=== PATIENT | female | born 1940 | race Caucasian/White ===

== ENCOUNTER → 2017-08-31 | Outpatient (CLI) | payer OTHER ==
[~2017-08-31] MED LIST: ACTONEL 5 MG5 M1 PO; ACTONEL PO; ADULT LOW DOSE81 MG PO; AVALIDE 300-251 EACH PO; CALCIUM PO; CATAPRES-TTS 10.1 MG TD; CATAPRES-TTS 21 EACH TRANSDERM; CELEBREX 200 M200 M1 PO; CLONAZEPAM PO; CRESTOR20 MG PO; CRESTOR40 MG PO; CRESTOR5 MG PO; DULERA 200 MCG/13 GM INH; FISH OIL 1,0001 EAC5 PO; FISHOIL PO; FLOMAX0.4 MG PO; HI-CAL500 MG PO; HYDROCODON-ACE1 EAC5 PO; HYDROCODON-ACE1 EAC7 PO; JANUVIA100 MG PO; LOSARTAN-HCTZ1 EAC1 PO; LYRICA 50 MG50 MG PO; NAPROXEN375 MG PO; PROAIR HFA8.5 GM INH; ROBAXIN 750 MG750 MG PO; SYMBICORT160 MCG/4. INH; TOPROL XL100 MG PO; TOPROL XL50 MG PO; TRAMADOL 50 MG50 MG PO; TRENTAL400 MG PO; TRICOR145 MG PO; TYLENOL EX-STR500 M2 PO; VITAMIN D 5050000 I1 PO; VITAMIN D400 UNI1 PO; ZETIA10 MG PO
== END ==
LOC: ULTRA 15:00
DX: M79.662 Pain in left lower leg (principal); M79.89 Other specified soft tissue disorders

== ENCOUNTER → 2018-07-23 | Outpatient (CLI) | payer OTHER | LOC: RAD 14:43 | DX: M47.22 Other spondylosis with radiculopathy, cervical region (principal) ==

== ENCOUNTER → 2020-02-03 | Outpatient (CLI) | payer OTHER | LOC: SJCVC 12:44 | PROVIDERS: ATTEND Internal Medicine | DX: I25.810 Atherosclerosis of coronary artery bypass graft(s) without angina pectoris (principal); I11.0 Hypertensive heart disease with heart failure; I50.32 Chronic diastolic (congestive) heart failure; I65.23 Occlusion and stenosis of bilateral carotid arteries; I70.1 Atherosclerosis of renal artery; E78.5 Hyperlipidemia, unspecified; E11.9 Type 2 diabetes mellitus without complications; I71.4 Abdominal aortic aneurysm, without rupture; M17.11 Unilateral primary osteoarthritis, right knee; Z95.1 Presence of aortocoronary bypass graft; Z79.82 Long term (current) use of aspirin; Z87.891 Personal history of nicotine dependence; Z79.899 Other long term (current) drug therapy ==

== ENCOUNTER → 2020-08-11 | Outpatient (CLI) | payer OTHER | LOC: SJCVCIMAG 08:50 | PROVIDERS: ATTEND Internal Medicine | DX: I65.23 Occlusion and stenosis of bilateral carotid arteries (principal); N28.1 Cyst of kidney, acquired; I73.9 Peripheral vascular disease, unspecified; I71.4 Abdominal aortic aneurysm, without rupture; I10 Essential (primary) hypertension; E78.5 Hyperlipidemia, unspecified; I25.10 Atherosclerotic heart disease of native coronary artery without angina pectoris; E11.9 Type 2 diabetes mellitus without complications ==

== ENCOUNTER → 2020-09-09 | Outpatient (CLI) | payer OTHER | LOC: SJCVCIMAG 08:56 | PROVIDERS: ATTEND Internal Medicine | DX: I08.3 Combined rheumatic disorders of mitral, aortic and tricuspid valves (principal); I49.3 Ventricular premature depolarization; I25.10 Atherosclerotic heart disease of native coronary artery without angina pectoris; E78.5 Hyperlipidemia, unspecified; I11.0 Hypertensive heart disease with heart failure; I50.32 Chronic diastolic (congestive) heart failure; E11.9 Type 2 diabetes mellitus without complications; Z95.1 Presence of aortocoronary bypass graft; Z79.899 Other long term (current) drug therapy ==

== ENCOUNTER → 2020-11-24 | Outpatient (CLI) | payer OTHER ==
[~2020-11-24] VITALS: Ht 160 cm; Wt 65.8 kg
[~2020-11-24] MED LIST changes: +DICLOFENAC SOD100 G1 TOP; +FISH OIL 1,0001 EAC9 PO; +MOBIC7.5 M1 PO; +NORVASC5 MG PO; +OLMESARTAN-HCT1 EAC1 PO; +OXYBUTYNIN 5 MG5 M2 PO; +OXYBUTYNIN ER 55 M1 PO; +PREMARIN30 GM TOP; +STIOLTO RESPIMAT4 GM INH; +TEMOVATE30 GM PO
[2020-11-24 09:01] VITALS: BP 133/58
--- NOTE | 2020-11-24 09:21 | NUR ---
Pain Clinic Assessment: 1. History of Osteoarthritis: NECK RIGHT HAND LEFT THUMB RIGHT KNEE History of Rheumatoid Arthritis: Not Applicable 2. Height: 5 ft. 3 in. 160.0 cm. Weight: 145.0 lb. oz. 65.772 kg. Patient's BMI: 25.7 3. Vital Signs: BP: 133/58 Pulse: 76 Resp: 14 Temp: 02 Sat: 98 ECG Mon: 4. Pain Intensity: 3 5. Fall Risk: Dizziness: N Needs help standing or walking: N Fallen in the last 3 months: N Fall risk comments: 6. Patient on Blood Thinner: None 7. History of Hypertension: Y 8. Opioid Therapy greater than 6 weeks: Opiate Contract Signed: 9. Risk Assessment Tool Provided: LOW-0 10. Functional Assessment Tool: 11. Recreational Drug Use: Never Drug Type: Tobacco Use: Former Smoker Tobacco Type: Amount or Packs/day: How Many Years: Alcohol Use: Yes Frequency: Weekly Quant: 2-3
--- NOTE | 2020-11-30 10:55 | HPC ---
[facility] [place] [address] PAIN MANAGEMENT CONSULTATION Name: KIARRA GOMEZ Room #: REG CHARISSASabrina Villanueva#: [id number] Admission: 11/24/20 Attend Phys: Agustin Suarez DO Discharge: Date of : 39 Report #: [id number] THIS REPORT FOR: cc: Kiarra Maddox DNP, Mary E. DNP Johnson, James E. DO ~ cc: Trace Dunlap M.D. DATE OF SERVICE: 11/24/2020 REFERRING PHYSICIAN: Trace Dunlap MD. CHIEF COMPLAINT: Neck pain. HISTORY OF PRESENT ILLNESS: As you know, the patient is a very pleasant 80-year-old female referred to our service for a 1-1/2-year history of progressively worsening neck pain. The patient places the pain on the right side of her neck radiating up to the postauricular area. She has trialed conservative treatment, such as ajjf-flb-flasbyv medications, rest, relaxation and stretching exercises without benefit. She has undergone physical therapy for about 30 days with only minimal improvement in pain, but improvement in her rotational capability. She has been provided a Medrol Dosepak, but again this only provided transient pain improvement. She has found tramadol to be helpful, but only uses it sparingly. She sought evaluation through Neurosurgery seeing Dr. Trace Dunlap who had previously provided the patient a surgical procedure in the lumbar spine to discuss ongoing neck issues. The patient was seen by Dr. Dunlap and sent for MRI of the cervical spine, which showed no central canal or neural foraminal stenosis. There was noted moderate right paracentral disk protrusion at C6-C7, which prompted a referral to our clinic. The patient reports today her pain is rhythmic. She describes the pain, more of a throbbing and pounding sensation, places the current pain score , daily average at 3/10, worst pain has been at 9/10. The patient states that turning her head and lying down exacerbates symptoms. Rest and relaxation tends to improve pain. She has been referred to our service to discuss treatment options for cervical spondylosis. PAST MEDICAL HISTORY: 1. Diabetes. 2. Hypertension. 3. Chronic lung disease. 4. Coronary artery disease, status post CABG. 5. Degenerative joint disease. 6. Osteoarthritis. 7. History of transient ischemic attacks with no residual deficits. PAST SURGICAL HISTORY: [facility] [address] [place] [address] PAIN MANAGEMENT CONSULTATION Name: KIARRA GOMEZ Room #: REG CONNIE Villanueva#: [id number] Admission: 11/24/20 Attend Phys: Agustin Suarez DO Discharge: Date of : 39 Report #: [id number] 1. Hysterectomy. 2. Right hip surgery. 3. Coronary artery bypass grafting x 5. 4. L4-5 laminectomy. SOCIAL HISTORY: The patient denies tobacco, IV or illicit drug use. She admits to an occasional alcohol beverage. She is a retired nurse, retiring about 1 year ago, not receiving workmen's compensation, nor she is trying to obtain disability benefits. Not in litigation in regards to pain. She is unaccompanied at today's visit. REVIEW OF SYSTEMS: Positive for fatigue and weakness, wearing corrective eyewear, cataracts, shortness of breath with walking and lying flat, nocturia, diabetes mellitus type 2, neck pain and right head pain. All other review of systems negative per 12-point review of systems other than those listed in history of present illness. Pain impact score is 19/70, mild interference of daily activities secondary to pain. ALLERGIES: CODEINE. CURRENT MEDICATIONS: Diclofenac sodium 1% solution applied topically up to four times a day, clobetasol 30 grams once a day, Premarin 30 gram cream applied topically twice a day, [place]-3 fish oil 1 tab per day, oxybutynin 5 mg once a day, olmesartan/hydrochlorothiazide 40/12.5 mg once a day, amlodipine 5 mg per day, atorvastatin 40 mg per day, tiotropium bromide inhaled twice a day, clonidine 0.2 mg transdermal patch for a week, albuterol 2 puffs q. 4 hours p.r.n., calcium carbonate 1200 mg once a day, vitamin D 50,000 units per week, Januvia 100 mg once a day, aspirin 81 mg per day, fenofibrate 145 mg per day. IMAGING: MRI cervical spine obtained on 10/15/2020 shows multilevel degenerative changes without high-grade spinal canal or neural foraminal narrowing. Spinal canal is minimally reduced at C3-4 and C4-5 measuring 8 mm. This is also noted at C5-6. There is a bgdyr-ex-cfgniasq right paracentral disk broad-based bulge at the C6-7 level, does not frankly efface the ventral thecal sac. Foramina appeared normal. PQRS: The patient has known arthritic changes of the cervical spine, bilateral hands and right knee. No rheumatoid arthritis, placing pain intensity today at 3/10, not a fall risk, has not had a fall in last 3 months. She is not on blood thinners, but is treated for hypertension. She is not on any opioids, has a low opioid addiction potential. Pain impact is a 19/70, mild interference of daily activities secondary to pain. PHYSICAL EXAMINATION: VITAL SIGNS: Blood pressure 133/58, pulse 76, respiratory rate 14 and unlabored. The patient 98% on room air. Height 5 feet 3 inches tall, weight [facility] [address] [place] [address] PAIN MANAGEMENT CONSULTATION Name: KIARRA GOMEZ Room #: REG [facility] M.R.#: [id number] Admission: 11/24/20 Attend Phys: Agustin Suarez DO Discharge: Date of : 39 Report #: [id number] 145 pounds, BMI calculated 25.7. GENERAL: Well-developed, well-nourished, well-hydrated 80-year-old female appearing her stated age. She is in no acute distress. Awake, alert and oriented x 3. Current pain score is rated around 3/10. HEENT: Normocephalic, atraumatic. Pupils equal, round and responsive. She is deemed an excellent historian. She is wearing a mask in compliance with COVID-19 regulations. LUNGS: Clear. No wheeze, rhonchi or rales. CARDIOVASCULAR: Regular. No appreciable gallop, no rub. EXTREMITIES: Show no clubbing, no cyanosis, no edema. MUSCULOSKELETAL: Upper extremity strength appears symmetrical, 5/5. Muscle bulk and tone is equal and symmetrical in upper extremities. Deep tendon reflexes are reduced at 1+/4 at biceps, brachioradialis and triceps and that is equally, both left and right. Spurling's test is negative. Cervical provocation testing is met with increasing pain, specifically over the right. There is palpatory tenderness of the cervical spine. No spinous process tenderness. ASSESSMENT: 1. Cervical spondylosis without radiculopathy. 2. Cervical facet arthropathy. 3. Cervicogenic headache. 4. Chronic intractable pain. PLAN: 1. Based on today's physical exam and history the patient has provided, the description the patient uses in regards to pain as well as the distribution of symptoms she is experiencing pain upon, the likely source of the patient's pain is the facet joints of the cervical spine. The patient and I discussed at length today treatment options we have in regards to cervical facet arthropathy and cervicogenic headaches. The following was discussed with the patient today. We discussed physical therapy, stretching exercises and traction techniques as a treatment course. We discussed adjustments in medication management utilizing consistent medication treatment for her ongoing pain. We discussed intraarticular facet injections for diagnostic purposes. We discussed medial branch nerve blocks and radiofrequency lesioning as a treatment course. We also discussed with the patient surgical options, though at this point, she is deemed a nonsurgical candidate. After reviewing the risks and benefits of all proposed treatment options, the patient chose to begin with more conservative treatment. 2. The patient and I discussed cervical traction as a treatment course. She would like to try this. We have sent the patient for cervical traction and evaluation. She will begin that process immediately. I am hopeful the patient will see good benefit with this type of treatment. Typically, patients who find benefit with cervical traction tend to acquire the device so they can perform this at home. She will keep us apprised whether or not she does move forward with device purchase. [address] [address] PAIN MANAGEMENT CONSULTATION Name: KIARRA GOMEZ Room #: REG CONNIE Villanueva#: [id number] Admission: 11/24/20 Attend Phys: Agustin Suarez DO Discharge: Date of : 39 Report #: [id number] 3. We have provided the patient changes in her daily activities and in her specific type of pillow to address her neck pain. She will determine whether or not these changes and stretches are effective. 4. We discussed the possibility of making adjustments in medication management. At this time, the patient wishes to continue her current medications without alteration. We will discuss changes in medications, possibly in the very near future. 5. We plan to see the patient back in followup visit for intra-articular facet injections for diagnostic purposes to address right neck pain. We will plan that the patient will be back in a couple of weeks, if any type of prior authorization will be necessary, we will begin that process immediately. 6. We wish to thank Dr. Trace Dunlap for the opportunity to see the patient in consultation. We will keep you apprised of her response to treatment to address cervical facet arthropathy and chronic cervicogenic headache. Again, we wish to thank you for the opportunity to see the patient in consultation. <ELECTRONICALLY SIGNED> By: Agustin Suarez DO 11/30/20 1055 [id number] [id number] Agustin Suarez DO /nt
== END ==
LOC: PAIN 06:56
PROVIDERS: ATTEND Anesthesiology Pain Medicine
DX: G89.29 Other chronic pain (principal); M47.812 Spondylosis without myelopathy or radiculopathy, cervical region; G44.89 Other headache syndrome; I10 Essential (primary) hypertension; E11.9 Type 2 diabetes mellitus without complications; I25.10 Atherosclerotic heart disease of native coronary artery without angina pectoris; M19.90 Unspecified osteoarthritis, unspecified site; Z90.710 Acquired absence of both cervix and uterus; Z95.1 Presence of aortocoronary bypass graft; Z98.890 Other specified postprocedural states; Z68.25 Body mass index [BMI] 25.0-25.9, adult; Z88.5 Allergy status to narcotic agent; Z79.891 Long term (current) use of opiate analgesic; Z79.899 Other long term (current) drug therapy

== ENCOUNTER → 2020-12-22 | Outpatient (CLI) | payer OTHER ==
[~2020-12-22] VITALS: Ht 160 cm; Wt 66.9 kg
[2020-12-22 09:07] VITALS: BP 140/67
--- NOTE | 2020-12-22 09:18 | NUR ---
Pain Clinic Assessment: 1. History of Osteoarthritis: NECK RIGHT HAND LEFT THUMB RIGHT KNEE History of Rheumatoid Arthritis: * HANDS 2. Height: 5 ft. 3 in. 160.0 cm. Weight: 147.4 lb. oz. 66.860 kg. Patient's BMI: 26.1 3. Vital Signs: BP: 140/67 Pulse: 85 Resp: 16 Temp: 02 Sat: 93 ECG Mon: 4. Pain Intensity: 0 5. Fall Risk: Dizziness: N Needs help standing or walking: N Fallen in the last 3 months: N Fall risk comments: 6. Patient on Blood Thinner: None 7. History of Hypertension: Y 8. Opioid Therapy greater than 6 weeks: Opiate Contract Signed: 9. Risk Assessment Tool Provided: LOW-0 10. Functional Assessment Tool: 11. Recreational Drug Use: Never Drug Type: Tobacco Use: Former Smoker Tobacco Type: Amount or Packs/day: How Many Years: Alcohol Use: Yes Frequency: Special Occasions Quant: 1
--- NOTE | 2020-12-28 10:15 | HPC ---
[facility] [place] [address] [place] [address] PAIN MANAGEMENT CONSULTATION Name: KIARRA GOMEZ Room #: REG CONNIE Villanueva#: [id number] Admission: 12/22/20 Attend Phys: Agustin Suarez DO Discharge: Date of : 39 Report #: [id number] THIS REPORT FOR: cc: Kiarra Maddox DNP, Mary E. DNP Johnson, James E. DO ~ cc: Trace Dunlap MD DATE OF SERVICE: 12/22/2020 CHIEF COMPLAINT: Neck pain. HISTORY OF PRESENT ILLNESS: As you know, the patient is a very pleasant 80-year-old female returning in followup visit reporting a year and a half history of progressively worsening neck pain. She places pain mainly on the right side, but radiates into the postauricular area. She has trialled conservative treatment without improvement in symptoms. She was seen in consultation per the request of Dr. Trace Dunlap on 11/24/2020 diagnosed with cervical facet arthropathy and cervical spondylosis without radiculopathy, leading to a cervicogenic headache. She wished to begin with conservative treatment, provided medication management to control symptoms. She returns today in followup visit stating meloxicam at half a tablet twice a day is working beneficially this in conjunction with the p.r.n. use of tramadol allows the patient to be able to function more readily and she is able to go about her activities of daily living without significant pain. She is very pleased with response to treatment, returning today requesting refill of the medications and to continue treatment. ALLERGIES: CODEINE. CURRENT MEDICATIONS: Clobetasol 30 grams once a day, Premarin 30 grams topically, [place] 3 fish oil 1 tab per day, oxybutynin 5 mg once a day, olmesartan/hydrochlorothiazide 40/12.5 mg once a day, amlodipine 5 mg once a day, atorvastatin 40 mg per day, tiotropium bromide b.i.d., clonidine 0.2 mg transdermal patch once a week, albuterol 2 puffs q. 4 hours, calcium carbonate 1200 mg a day, vitamin D 50,000 units per day, Januvia 100 mg per day, aspirin 81 mg per day, fenofibrate 145 mg per day. SOCIAL HISTORY: The patient denies tobacco, IV or illicit drug use. Admits to occasional alcohol beverage. 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 IMAGING: No new imaging available. PQRS: The patient has known arthritic changes of the cervical spine, bilateral hands and right knee. No rheumatoid arthritis, placing current pain score around 0/10, she is not a fall risk, has not had a fall in last 3 months. She [address] [address] PAIN MANAGEMENT CONSULTATION Name: KIARRA GOMEZ ANN Room #: REG CLI Kay#: [id number] Admission: 12/22/20 Attend Phys: Agustin Suarez DO Discharge: Date of : 39 Report #: [id number] is not on blood thinners, but is treated for hypertension. She is not on chronic opioids and has a low opioid addiction potential. Pain impact today consistent with last visit. PHYSICAL EXAMINATION: VITAL SIGNS: Blood pressure 140/67, pulse 85, respiratory rate 16 and unlabored. The patient 93% on room air. Height 5 feet 3 inches tall, weight 147.4 pounds, BMI calculated 26.1. GENERAL: Well-developed, well-nourished, well-hydrated 80-year-old female appearing stated age, pain is rated today 0/10. HEENT: Normocephalic, atraumatic. Pupils equal, round and responsive. She is wearing a mask in compliance with COVID-19 regulations. EXTREMITIES: Show no clubbing, no cyanosis and no edema. MUSCULOSKELETAL: Upper extremity strength equal and symmetrical 5/5. Muscle bulk and tone equal and symmetrical. Deep tendon reflexes are diminished, but symmetrical again today. Cervical testing is met with increased pain over the right side with rotation, lateral flexion. Spurling's test negative. No changes in the hands, wrists, elbows or shoulders consistent with any type of rheumatologic issues. ASSESSMENT: 1. Cervical spondylosis without radiculopathy. 2. Cervical facet arthropathy. 3. Cervicogenic headache. 4. Chronic intractable pain. PLAN: 1. The patient returns today in followup visit having noted excellent benefit with the combination of meloxicam and tramadol. She states she rarely has to rely on any tramadol, but finds the meloxicam has been beneficial. She has had a little bit of GI upset with the meloxicam, but adjustments in her dosing has worked well. She returns today in followup visit for refill of medications, requesting them for the next 3 months. 2. We reviewed the fact that opiate medications are being used to provide analgesia adequate to support activities of daily living, not attempting to achieve a specific pain score on the 0-10 Visual Analog Scale. The current opiate medications are providing sufficient analgesia to allow the patient to participate in activities of daily living. The patient is not exhibiting any aberrant behavior suggestive of drug diversion. The patient is not having any adverse reactions to medications. The patient is not suffering from daytime somnolence or mental acuity changes. The patient is managing opiate-induced constipation with appropriate ydqu-npy-ijqcxfy agents and dietary considerations. The patient was counseled on concern for caution with operating a motor vehicle while using opiate medications. A physical exam was performed and the patient's functional status was evaluated. [facility] [address] [place] [address] PAIN MANAGEMENT CONSULTATION Name: KIARRA GOMEZ Room #: REG [facility] M.R.#: [id number] Admission: 12/22/20 Attend Phys: Agustin Suarez DO Discharge: Date of : 39 Report #: [id number] All patients with back pain were advised against the bed rest greater than 4 days and were advised to return to normal activities. Pain score assessment was noted and the treatment plan was reviewed with the patient. All current medications, both prescribed and OTC were reviewed and reconciled on the electronic medical record. Tobacco screening was accomplished and smoking cessation was advised when indicated. BMI was noted and diet/exercise modification was recommended for all patients following outside normal parameters. I reviewed with the patient today their responsibilities to safeguard prescription medications, reviewed their responsibility to utilize medications only as prescribed by the physician. They are to seek and receive pain medications only from 1 physician group ( [facility]). They are to use 1 pharmacy and keep the clinic informed if they change pharmacies. Their responsibilities include making followup visits in a timely fashion and to avoid abrupt discontinuation of medication usage. Their responsibilities further include bringing their medications (bottles from the pharmacy with residual pills) to the visit for possible confirmation of pill counts and the patient understands it is their responsibility to submit to random drug screens to ensure both that the medications prescribed are present, and that no other controlled substances are present. All prescriptions provided today were generated electronically. 3. The patient was provided a refill prescription of tramadol 50 mg dose 1 tab p.o. t.i.d. p.r.n. pain. I have given the patient #90 tablets to release today and 2 refills 3 months with the medication. The patient was advised to take this medication as directed, not to take the medication prophylactically. Prescription sent via e-scribe to local pharmacy. 4. The patient was provided a prescription of meloxicam 7.5 mg 1 tab p.o. b.i.d. I have given the patient #60 tablets to release today for a 3 month prescription to Rx her mail-in pharmacy. She has refills on this medication for the next couple of months. 5. We will see the patient back in followup visit on an as needed basis. We were pleased to see she is doing well with medications. We are hopeful she will continue to see good benefit with this issue. <ELECTRONICALLY SIGNED> By: Agustin Suarez DO 12/28/20 1015 [id number] 1309 Agustin Suarez DO /nt
== END ==
LOC: PAIN 08:19
PROVIDERS: ATTEND Anesthesiology Pain Medicine
DX: M47.812 Spondylosis without myelopathy or radiculopathy, cervical region (principal); R51.9 Headache, unspecified; G89.29 Other chronic pain

== ENCOUNTER → 2021-02-18 | Outpatient (CLI) | payer OTHER | LOC: SJCVC 13:38 | PROVIDERS: ATTEND Internal Medicine | DX: I25.10 Atherosclerotic heart disease of native coronary artery without angina pectoris (principal); I11.0 Hypertensive heart disease with heart failure; I50.32 Chronic diastolic (congestive) heart failure; I65.23 Occlusion and stenosis of bilateral carotid arteries; I70.1 Atherosclerosis of renal artery; I71.4 Abdominal aortic aneurysm, without rupture; E11.9 Type 2 diabetes mellitus without complications; E78.5 Hyperlipidemia, unspecified; J44.9 Chronic obstructive pulmonary disease, unspecified; N20.0 Calculus of kidney; Z95.1 Presence of aortocoronary bypass graft; Z87.891 Personal history of nicotine dependence; Z72.89 Other problems related to lifestyle; Z88.5 Allergy status to narcotic agent; Z88.8 Allergy status to other drugs, medicaments and biological substances ==